=== PATIENT | female | born 1940 | race African-American/Black ===

== ENCOUNTER 2019-08-08 00:50 | Inpatient (IN) | payer MEDICARE, OTHER ==
[~2019-08-08] VITALS: Ht 165.1 cm; Wt 106.2 kg
[2019-08-08] VITALS (7 sets, daily range): BP systolic 105–153; BP diastolic 56–82
[2019-08-08 03:14] LABS: HEMATOCRIT. 44.4 % (36.0-48.0); HEMOGLOBIN. 15.3 g/dL (12.0-16.0); MEAN CORPUSCULAR HEMOGLOBIN 31.3 pg (28.0-32.0); MEAN CORPUSCULAR VOLUME 91.1 fL (81.0-99.0); MEAN PLATELET VOLUME 11.9 fl (7.4-10.4); PLATELET 386 x1000/uL (130-400); RED BLOOD CELL COUNT 4.88 mill/uL (4.2-5.4); RED CELL DISTRIBUTION WIDTH 14.7 % (11.6-14.6)
[2019-08-08] MEDS ORDERED: SODIUM CHLORIDE 0.9% 1,000 ML IV ONE (03:45)
[2019-08-08 03:57] LABS: CHLORIDE 77 mEq/L (98-107)
[2019-08-08] MEDS ORDERED: VANCOMYCIN 1 G PREMIX 200 ML IV SCH (04:15)
[2019-08-08] MEDS ORDERED: PIPERACILLIN/TAZOBACTAM 3.375GM/50ML PREMIX IV SCH (04:15)
[2019-08-08] MEDS ORDERED: POTASSIUM CHLORIDE 20MEQ TABLET SR PO SCH (04:15)
[2019-08-08] MEDS ORDERED: ONDANSETRON HCL 4MG/2ML INJ IV ONE (04:30)
[2019-08-08 05:43] LABS: ATYPICAL LYMPHOCYTES 1
[2019-08-08 05:44] LABS: PLATELET ESTIMATE NORMAL
[2019-08-08] MEDS ORDERED: DEXT 5%/0.45% NACL 1000ML 1,000 ML IV SCH (09:00)
[2019-08-08] MEDS ORDERED: ONDANSETRON HCL 4MG/2ML INJ IV PRN (09:15)
[2019-08-08] MEDS ORDERED: NA PHOS,M-B/NA PHOS,DI-BA ENEMA 118ML PR PRN (09:15)
[2019-08-08] MEDS ORDERED: MAGNESIUM/ALUMINUM HYDROXIDE/SIMETHICONE 30ML UDC PO PRN (09:15)
[2019-08-08] MEDS ORDERED: DOCUSATE SODIUM 100MG CAPSULE PO PRN (09:15)
[2019-08-08] MEDS ORDERED: ACETAMINOPHEN 650MG SUPP PR PRN (09:15)
[2019-08-08] MEDS ORDERED: CLONIDINE 0.1MG TABLET PO PRN (09:15)
[2019-08-08] MEDS ORDERED: GUAIFENESIN 200MG/10ML SUGAR FREE UDC PO PRN (09:15)
[2019-08-08] MEDS ORDERED: DEXTROSE 50% WATER 50ML SYRINGE IV PRN (09:30)
[2019-08-08] MEDS ORDERED: ENOXAPARIN 40MG/0.4ML SYR SUBCUT SCH (10:00)
[2019-08-08] MEDS: CEFTRIAXONE 1,000 MG in DEXTROSE 5% WATER 50 ML IV SCH (12:14)
[2019-08-08] MEDS: BLOOD SUGAR DIAGNOSTIC STRIP TEST SCH ×3 (12:18→21:00)
[2019-08-08] MEDS: INSULIN LISPRO 100 UNITS/ML SUBCUT SCH ×2 (12:20→17:20)
[2019-08-08] MEDS: METRONIDAZOLE 500 MG PREMIX 100 ML IV SCH (13:13)
[2019-08-08] MEDS: SODIUM CHLORIDE 0.9% INJ 3ML FLUSH IVF SCH (14:00)
[2019-08-08] MEDS: MORPHINE SULFATE 2 MG/ML CPJ (NOT FOR IM USE) IV PRN (14:27)
[2019-08-08] MEDS: PANTOPRAZOLE SODIUM 40 MG/VIAL IV SCH (14:45)
[2019-08-08 16:07] LABS: BG BASE EXCESS 15.9 mmol/L (-2.0-2.0); BG CARBOXYHEMOGLOBIN 0.8 % (0.5-1.5); BG DEOXYHEMOGLOBIN 6.2 % (0.0-5.0); BG FRACTION INSPIRED OXYGEN 28; BG HCO3 ACT 41.9 mmol/L (22.0-26.0); BG METHEMOGLOBIN 0.3 % (0.0-1.5); BG OXYGEN SATURATION 93.7 % (92.0-98.5); BG OXYHEMOGLOBIN 92.7 % (94.0-97.0); BG PCO2 55.8 mmHg (35.0-45.0); BG PH 7.493 (7.350-7.450); BG SAMPLE SITE RIGHT BRACHIAL; BG TOTAL HEMOGLOBIN 13.4 g/dL (12.0-18.0); BG VENT MODE NASAL CANNULA
[2019-08-08 17:25] LABS: CLARITY URINE TURBID (CLEAR); COLOR URINE DARK YELLOW (YELLOW); KETONES URINE TRACE (NEGATIVE); LEUKOCYTE ESTERASE URINE 2+ (NEGATIVE); NITRITE URINE NEGATIVE (NEGATIVE); OCCULT BLOOD URINE 3+ (NEGATIVE); PROTEIN URINE 2+ (NEGATIVE); SPECIFIC GRAVITY URINE 1.022 (1.005-1.030)
[2019-08-08 17:54] LABS: HEMATOCRIT. 41.4 % (36.0-48.0); MEAN CORPUSCULAR HEMOGLOBIN 30.8 pg (28.0-32.0); MEAN PLATELET VOLUME 10.5 fl (7.4-10.4); PLATELET 280 x1000/uL (130-400); RED BLOOD CELL COUNT 4.55 mill/uL (4.2-5.4); RED CELL DISTRIBUTION WIDTH 14.2 % (11.6-14.6)
[2019-08-08 17:59] LABS: CHLORIDE 80 mEq/L (98-107)
[2019-08-08 18:07] LABS: PHOSPHORUS 4.1 mg/dL (2.5-4.9)
[2019-08-08] MEDS: IPRATROPIUM/ALBUTEROL 0.5-3(2.5)MG/3ML NEB HHN SCH (20:59)
[2019-08-08 22:24] LABS: PLATELET ESTIMATE NORMAL
[2019-08-09] VITALS (12 sets, daily range): BP systolic 106–145; BP diastolic 49–66
[2019-08-09] MEDS: DEXT 5%/0.9% NACL KCL 30MEQ/L 1,000 ML IV SCH ×4 (00:30→23:43)
[2019-08-09] MEDS: METRONIDAZOLE 500 MG PREMIX 100 ML IV SCH ×4 (00:35→20:27)
[2019-08-09] MEDS: INSULIN LISPRO 100 UNITS/ML SUBCUT SCH ×5 (01:03→21:00)
[2019-08-09] MEDS: SODIUM CHLORIDE 0.9% INJ 3ML FLUSH IVF SCH ×4 (01:03→22:40)
[2019-08-09] MEDS: IPRATROPIUM/ALBUTEROL 0.5-3(2.5)MG/3ML NEB HHN SCH ×2 (01:18→20:24)
[2019-08-09] MEDS: BLOOD SUGAR DIAGNOSTIC STRIP TEST SCH ×4 (06:01→21:06)
[2019-08-09 06:43] LABS: HEMATOCRIT. 37.5 % (36.0-48.0); HEMOGLOBIN. 12.8 g/dL (12.0-16.0); MEAN CORPUSCULAR VOLUME 90.7 fL (81.0-99.0); MEAN PLATELET VOLUME 10.4 fl (7.4-10.4); PLATELET 264 x1000/uL (130-400); RED BLOOD CELL COUNT 4.14 mill/uL (4.2-5.4)
[2019-08-09 06:48] LABS: CHLORIDE 89 mEq/L (98-107)
[2019-08-09 06:56] LABS: PHOSPHORUS 2.9 mg/dL (2.5-4.9)
[2019-08-09 06:57] LABS: CREATINE KINASE 113 IU/L (26-192); LDL CHOLESTEROL 38 mg/dL (5-100)
[2019-08-09 06:59] LABS: HDL CHOLESTEROL 35 mg/dL (40-59)
[2019-08-09] MEDS: CEFTRIAXONE 1,000 MG in DEXTROSE 5% WATER 50 ML IV SCH (11:38)
[2019-08-09] MEDS: PANTOPRAZOLE SODIUM 40 MG/VIAL IV SCH (11:38)
[2019-08-09] MEDS: ENOXAPARIN 30MG/0.3ML SYR SUBCUT SCH (11:46)
[2019-08-09] MEDS ORDERED: POTASSIUM CHLORIDE INJ 40 MEQ in DEXT 5% WATER 250 ML IV SCH ×2 (12:00→21:00)
[2019-08-09 13:41] LABS: PLATELET ESTIMATE NORMAL
[2019-08-09] MEDS ORDERED: ACETAZOLAMIDE SODIUM 500MG/VIAL IV SCH (16:00)
[2019-08-09] MEDS: MORPHINE SULFATE 2 MG/ML CPJ (NOT FOR IM USE) IV PRN (17:50)
[2019-08-09] MEDS ORDERED: PHENOL/SODIUM PHENOLATE 1.4% SRPAY 177ML MT PRN (23:15)
[2019-08-10] VITALS (10 sets, daily range): BP systolic 114–131; BP diastolic 45–79
[2019-08-10] MEDS: IPRATROPIUM/ALBUTEROL 0.5-3(2.5)MG/3ML NEB HHN SCH ×4 (01:02→21:11)
[2019-08-10] MEDS: METRONIDAZOLE 500 MG PREMIX 100 ML IV SCH ×3 (04:21→20:07)
[2019-08-10] MEDS: SODIUM CHLORIDE 0.9% INJ 3ML FLUSH IVF SCH ×2 (06:37→14:00)
[2019-08-10] MEDS: BLOOD SUGAR DIAGNOSTIC STRIP TEST SCH ×4 (06:44→20:26)
[2019-08-10 07:10] LABS: *CREATININE RANDOM URINE 93.8 mg/dL (Not Estab.); MICROALBUMIN RANDOM URINE 263.5 ug/mL (Not Estab.)
[2019-08-10 07:14] LABS: HEMOGLOBIN. 13.8 g/dL (12.0-16.0); MEAN CORPUSCULAR HEMOGLOBIN 30.9 pg (28.0-32.0); MEAN CORPUSCULAR VOLUME 93.8 fL (81.0-99.0); MEAN PLATELET VOLUME 10.3 fl (7.4-10.4); PLATELET 238 x1000/uL (130-400); RED BLOOD CELL COUNT 4.47 mill/uL (4.2-5.4); RED CELL DISTRIBUTION WIDTH 14.3 % (11.6-14.6)
[2019-08-10 07:26] LABS: CHLORIDE 107 mEq/L (98-107)
[2019-08-10 07:39] LABS: PHOSPHORUS 1.5 mg/dL (2.5-4.9)
[2019-08-10] MEDS: ENOXAPARIN 30MG/0.3ML SYR SUBCUT SCH (09:01)
[2019-08-10] MEDS: PANTOPRAZOLE SODIUM 40 MG/VIAL IV SCH (09:01)
[2019-08-10] MEDS: INSULIN LISPRO 100 UNITS/ML SUBCUT SCH ×4 (09:03→20:29)
[2019-08-10] MEDS: CEFTRIAXONE 1,000 MG in DEXTROSE 5% WATER 50 ML IV SCH ×2 (09:11→16:35)
[2019-08-10] MEDS ORDERED: DIATR MEGLU/DIATRIZOATE SOLN 120ML ONE (11:08)
[2019-08-10] MEDS ORDERED: POTASSIUM PHOS,M-BASIC-D-BASIC 20 MMOL in DEXT 5% WATER 243.3333 ML IV ONE (13:00)
[2019-08-10 14:20] LABS: PLATELET ESTIMATE NORMAL
[2019-08-10] MEDS: DEXT 5%/0.9% NACL KCL 30MEQ/L 1,000 ML IV SCH ×2 (16:35→16:48)
[2019-08-11] VITALS (11 sets, daily range): BP systolic 89–185; BP diastolic 53–150
[2019-08-11] MEDS: IPRATROPIUM/ALBUTEROL 0.5-3(2.5)MG/3ML NEB HHN SCH ×4 (02:00→21:30)
[2019-08-11] MEDS: DEXT 5%/0.9% NACL KCL 30MEQ/L 1,000 ML IV SCH (02:25)
[2019-08-11] MEDS: SODIUM CHLORIDE 0.9% INJ 3ML FLUSH IVF SCH ×4 (02:29→23:06)
[2019-08-11] MEDS: METRONIDAZOLE 500 MG PREMIX 100 ML IV SCH ×2 (06:02→12:00)
[2019-08-11] MEDS: BLOOD SUGAR DIAGNOSTIC STRIP TEST SCH ×4 (06:47→21:00)
[2019-08-11] MEDS: INSULIN LISPRO 100 UNITS/ML SUBCUT SCH ×4 (06:49→21:00)
[2019-08-11] MEDS: ENOXAPARIN 30MG/0.3ML SYR SUBCUT SCH (09:00)
[2019-08-11 09:10] LABS: MEAN CORPUSCULAR HEMOGLOBIN 31.3 pg (28.0-32.0); MEAN CORPUSCULAR VOLUME 93.5 fL (81.0-99.0); MEAN PLATELET VOLUME 10.2 fl (7.4-10.4); PLATELET 271 x1000/uL (130-400); RED BLOOD CELL COUNT 4.49 mill/uL (4.2-5.4); RED CELL DISTRIBUTION WIDTH 14.6 % (11.6-14.6)
[2019-08-11 09:16] LABS: CHLORIDE 114 mEq/L (98-107)
[2019-08-11 09:22] LABS: PHOSPHORUS 1.3 mg/dL (2.5-4.9)
[2019-08-11] MEDS: PANTOPRAZOLE SODIUM 40 MG/VIAL IV SCH (09:25)
[2019-08-11] MEDS: MORPHINE SULFATE 2 MG/ML CPJ (NOT FOR IM USE) IV PRN ×2 (11:30→23:41)
[2019-08-11 12:58] LABS: PLATELET ESTIMATE NORMAL
[2019-08-11] MEDS ORDERED: DILTIAZEM HCL 125 MG in DEXT 5% WATER 100 ML IV SCH (13:00)
[2019-08-11] MEDS ORDERED: POTASSIUM PHOS,M-BASIC-D-BASIC 20 MMOL in DEXT 5% WATER 243.3333 ML IV NR (14:00)
[2019-08-11] MEDS ORDERED: MIDAZOLAM HCL 2 MG/2 ML VIAL ONE (14:06)
[2019-08-11] MEDS ORDERED: PROPOFOL 200MG/20ML VIAL IV ONE (14:06)
[2019-08-11] MEDS ORDERED: NEOSTIGMINE METHYLSULFATE 1MG/ML 10 ML VIAL ONE ×2 (14:06→15:37)
[2019-08-11] MEDS ORDERED: FENTANYL CITRATE/PF 50MCG/ML 2ML VIAL ONE (14:06)
[2019-08-11] MEDS ORDERED: GLYCOPYRROLATE 0.2 MG/ML 2ML VIAL ONE ×2 (14:07→15:37)
[2019-08-11] MEDS ORDERED: ONDANSETRON HCL 4MG/2ML INJ ONE (14:07)
[2019-08-11] MEDS ORDERED: DEXAMETHASONE 4MG/ML 1ML VIAL ONE (14:07)
[2019-08-11] MEDS ORDERED: METRONIDAZOLE 500 MG PREMIX 100 ML IV ONE (14:15)
[2019-08-11 14:18] LABS: BG BASE EXCESS 9.3 mmol/L (-2.0-2.0); BG CARBOXYHEMOGLOBIN 0.6 % (0.5-1.5); BG FRACTION INSPIRED OXYGEN 32; BG HCO3 ACT 33.3 mmol/L (22.0-26.0); BG METHEMOGLOBIN 0.1 % (0.0-1.5); BG OXYHEMOGLOBIN 93.3 % (94.0-97.0); BG PCO2 42.8 mmHg (35.0-45.0); BG PH 7.509 (7.350-7.450); BG PO2 68.6 mmHg (75.0-100.0); BG SAMPLE SITE RIGHT BRACHIAL; BG TOTAL HEMOGLOBIN 13.7 g/dL (12.0-18.0); BG VENT MODE NASAL CANNULA
[2019-08-11] MEDS ORDERED: MORPHINE SULFATE 4 MG/ML CPJ (NOT FOR IM USE) IV PRN (14:45)
[2019-08-11] MEDS ORDERED: METRONIDAZOLE 500 MG PREMIX 100 ML IV SCH (14:45)
[2019-08-11] MEDS ORDERED: ROCURONIUM BROMIDE 10MG/ML VIAL 5ML IV ONE (15:06)
[2019-08-11] MEDS ORDERED: EPHEDRINE SULFATE 50MG/ML VIAL ONE (15:11)
[2019-08-11] MEDS ORDERED: SODIUM CHLORIDE 0.9% 10ML VIAL ONE (15:11)
[2019-08-11] MEDS ORDERED: DEXT 5%/0.45% NACL KCL 20MEQ/L 1,000 ML IV SCH (16:00)
[2019-08-11] MEDS: HYDROMORPHONE HCL/PF 2MG/ML CPJ IV PRN ×3 (16:54→17:09)
[2019-08-11 20:06] LABS: HEMATOCRIT. 49.9 % (36.0-48.0); HEMOGLOBIN. 16.1 g/dL (12.0-16.0); MEAN CORPUSCULAR HEMOGLOBIN 30.8 pg (28.0-32.0); MEAN CORPUSCULAR VOLUME 95.6 fL (81.0-99.0); MEAN PLATELET VOLUME 10.1 fl (7.4-10.4); PLATELET 278 x1000/uL (130-400); RED BLOOD CELL COUNT 5.22 mill/uL (4.2-5.4); RED CELL DISTRIBUTION WIDTH 14.9 % (11.6-14.6)
[2019-08-11 20:14] LABS: INR 2.1; PROTHROMBIN TIME 22.8 sec (9.6-11.0)
[2019-08-11 20:32] LABS: PLATELET ESTIMATE NORMAL
[2019-08-11] MEDS: [UNRECOGNIZED DRUG - OTHER] IV SCH ×2 (20:48→23:42)
[2019-08-11] MEDS: POTASSIUM PHOS M BASIC D BASIC IV SCH ×2 (20:48→23:42)
[2019-08-11] MEDS: POTASSIUM CHLORIDE IV SCH ×2 (20:48→23:42)
[2019-08-11] MEDS: CEFAZOLIN 1000MG PREMIX 50 ML IV SCH (22:54)
[2019-08-11] MEDS: FAMOTIDINE 20MG/2ML VIAL IV SCH (23:06)
[2019-08-12] VITALS (14 sets, daily range): BP systolic 100–148; BP diastolic 60–90
[2019-08-12] MEDS: METRONIDAZOLE 500 MG PREMIX 100 ML IV SCH ×4 (00:16→21:20)
[2019-08-12] MEDS: CEFAZOLIN 1000MG PREMIX 50 ML IV SCH ×2 (01:00→09:16)
[2019-08-12] MEDS: IPRATROPIUM/ALBUTEROL 0.5-3(2.5)MG/3ML NEB HHN SCH ×4 (02:20→20:41)
[2019-08-12] MEDS: [UNRECOGNIZED DRUG - OTHER] IV SCH (03:54)
[2019-08-12] MEDS: POTASSIUM CHLORIDE IV SCH (03:54)
[2019-08-12] MEDS: POTASSIUM PHOS M BASIC D BASIC IV SCH (03:54)
[2019-08-12] MEDS: SODIUM CHLORIDE 0.9% INJ 3ML FLUSH IVF SCH ×3 (06:00→21:41)
[2019-08-12] MEDS: BLOOD SUGAR DIAGNOSTIC STRIP TEST SCH ×3 (06:00→21:15)
[2019-08-12] MEDS: INSULIN LISPRO 100 UNITS/ML SUBCUT SCH ×3 (06:18→21:00)
[2019-08-12 07:27] LABS: HEMATOCRIT. 42.7 % (36.0-48.0); HEMOGLOBIN. 14.1 g/dL (12.0-16.0); MEAN CORPUSCULAR HEMOGLOBIN 31.5 pg (28.0-32.0); MEAN CORPUSCULAR VOLUME 95.4 fL (81.0-99.0); MEAN PLATELET VOLUME 9.7 fl (7.4-10.4); PLATELET 249 x1000/uL (130-400); RED BLOOD CELL COUNT 4.48 mill/uL (4.2-5.4)
[2019-08-12] MEDS: ENOXAPARIN 30MG/0.3ML SYR SUBCUT SCH ×2 (09:36→10:13)
[2019-08-12] MEDS: DEXTROSE 5% WATER 1,000 ML IV SCH ×2 (10:12→22:29)
[2019-08-12] MEDS: MORPHINE SULFATE 2 MG/ML CPJ (NOT FOR IM USE) IV PRN (10:14)
[2019-08-12] MEDS: CEFTRIAXONE 1,000 MG in DEXTROSE 5% WATER 50 ML IV SCH (10:31)
[2019-08-12] MEDS ORDERED: DILTIAZEM HCL 125 MG in DEXT 5% WATER 100 ML IV SCH ×2 (12:00→17:30)
[2019-08-12] MEDS ORDERED: DILTIAZEM HCL 5MG/ML 5ML VIAL IV NR (17:08)
[2019-08-12 18:08] LABS: NUCLEATED RED BLOOD CELLS 1 /100 WBC; PLATELET ESTIMATE NORMAL
[2019-08-12] MEDS: FAMOTIDINE 20MG/2ML VIAL IV SCH (21:21)
[2019-08-13] VITALS (12 sets, daily range): BP systolic 85–156; BP diastolic 53–89
[2019-08-13] MEDS: IPRATROPIUM/ALBUTEROL 0.5-3(2.5)MG/3ML NEB HHN SCH ×4 (02:29→20:35)
[2019-08-13] MEDS: METRONIDAZOLE 500 MG PREMIX 100 ML IV SCH ×3 (03:55→21:51)
[2019-08-13] MEDS: DEXTROSE 5% WATER 1,000 ML IV SCH ×4 (04:02→21:53)
[2019-08-13] MEDS: BLOOD SUGAR DIAGNOSTIC STRIP TEST SCH ×4 (06:17→21:59)
[2019-08-13] MEDS: SODIUM CHLORIDE 0.9% INJ 3ML FLUSH IVF SCH ×3 (06:17→21:51)
[2019-08-13 06:19] LABS: PHOSPHORUS 3.6 mg/dL (2.5-4.9)
[2019-08-13] MEDS: INSULIN LISPRO 100 UNITS/ML SUBCUT SCH ×4 (06:28→21:00)
[2019-08-13 06:33] LABS: BASOPHILS % 0.3 % (0.0-2.0); EOSINOPHILS % 0.6 % (0.0-5.0); HEMATOCRIT. 41.3 % (36.0-48.0); HEMOGLOBIN. 13.6 g/dL (12.0-16.0); LYMPHOCYTES % 9.6 % (20.0-50.0); MEAN CORPUSCULAR HEMOGLOBIN 31.2 pg (28.0-32.0); MEAN PLATELET VOLUME 10.1 fl (7.4-10.4); MONOCYTES % 6.1 % (2.0-8.0); NEUTROPHILS % 83.4 % (40.0-76.0); PLATELET 189 x1000/uL (130-400); RED BLOOD CELL COUNT 4.35 mill/uL (4.2-5.4); RED CELL DISTRIBUTION WIDTH 15.1 % (11.6-14.6)
[2019-08-13] MEDS ORDERED: DILTIAZEM HCL 125 MG in DEXT 5% WATER 100 ML IV SCH (09:00)
[2019-08-13] MEDS: CEFTRIAXONE 1 G PREMIX 50 ML IV SCH (19:49)
[2019-08-13] MEDS: MORPHINE SULFATE 2 MG/ML CPJ (NOT FOR IM USE) IV PRN (19:57)
[2019-08-13] MEDS: FAMOTIDINE 20MG/2ML VIAL IV SCH (22:32)
[2019-08-14] VITALS (12 sets, daily range): BP systolic 105–173; BP diastolic 50–88
[2019-08-14] MEDS: IPRATROPIUM/ALBUTEROL 0.5-3(2.5)MG/3ML NEB HHN SCH ×4 (02:40→22:00)
[2019-08-14] MEDS ORDERED: DILTIAZEM HCL 125 MG in DEXT 5% WATER 100 ML IV SCH (04:07)
[2019-08-14] MEDS ORDERED: DILTIAZEM HCL 5MG/ML 5ML VIAL IV NR (04:15)
[2019-08-14] MEDS: DEXTROSE 5% WATER 1,000 ML IV SCH ×2 (04:49→10:13)
[2019-08-14] MEDS: BLOOD SUGAR DIAGNOSTIC STRIP TEST SCH ×4 (06:07→20:56)
[2019-08-14] MEDS: SODIUM CHLORIDE 0.9% INJ 3ML FLUSH IVF SCH ×3 (06:07→22:25)
[2019-08-14 06:33] LABS: BASOPHILS % 0.2 % (0.0-2.0); EOSINOPHILS % 0.4 % (0.0-5.0); HEMATOCRIT. 39.3 % (36.0-48.0); HEMOGLOBIN. 13.1 g/dL (12.0-16.0); MEAN CORPUSCULAR HEMOGLOBIN 31.2 pg (28.0-32.0); MEAN CORPUSCULAR VOLUME 93.7 fL (81.0-99.0); MEAN PLATELET VOLUME 9.9 fl (7.4-10.4); MONOCYTES % 3.7 % (2.0-8.0); NEUTROPHILS % 85.7 % (40.0-76.0); PLATELET 155 x1000/uL (130-400); RED CELL DISTRIBUTION WIDTH 14.3 % (11.6-14.6)
[2019-08-14 06:40] LABS: CHLORIDE 110 mEq/L (98-107)
[2019-08-14 06:56] LABS: PHOSPHORUS 3.3 mg/dL (2.5-4.9)
[2019-08-14] MEDS: ENOXAPARIN 30MG/0.3ML SYR SUBCUT SCH (08:16)
[2019-08-14] MEDS: INSULIN LISPRO 100 UNITS/ML SUBCUT SCH ×4 (08:16→21:00)
[2019-08-14] MEDS ORDERED: MAGNESIUM 2 G PREMIX 50 ML IV SCH (12:00)
[2019-08-14] MEDS ORDERED: CLONIDINE HCL 0.2MG/24HR PATCH TD SCH (12:00)
[2019-08-14] MEDS: POTASSIUM CHLORIDE INJ 10 MEQ in DEXTROSE 5% WATER 1,000 ML IV SCH ×2 (12:24→20:56)
[2019-08-14] MEDS: DILTIAZEM HCL 125 MG in DEXT 5% WATER 100 ML IV SCH ×2 (15:30→22:24)
[2019-08-14] MEDS: CEFTRIAXONE 1 G PREMIX 50 ML IV SCH (17:21)
[2019-08-14] MEDS: FAMOTIDINE 20MG/2ML VIAL IV SCH (20:56)
[2019-08-15] VITALS (11 sets, daily range): BP systolic 108–147; BP diastolic 66–75
[2019-08-15] MEDS: IPRATROPIUM/ALBUTEROL 0.5-3(2.5)MG/3ML NEB HHN SCH ×4 (02:55→22:00)
[2019-08-15] MEDS: POTASSIUM CHLORIDE INJ 10 MEQ in DEXTROSE 5% WATER 1,000 ML IV SCH ×2 (04:46→09:16)
[2019-08-15] MEDS: SODIUM CHLORIDE 0.9% INJ 3ML FLUSH IVF SCH ×3 (05:31→22:00)
[2019-08-15] MEDS: BLOOD SUGAR DIAGNOSTIC STRIP TEST SCH ×4 (06:10→21:24)
[2019-08-15 06:42] LABS: BASOPHILS % 0.2 % (0.0-2.0); EOSINOPHILS % 0.4 % (0.0-5.0); HEMATOCRIT. 36.7 % (36.0-48.0); HEMOGLOBIN. 12.2 g/dL (12.0-16.0); LYMPHOCYTES % 8.3 % (20.0-50.0); MEAN CORPUSCULAR VOLUME 93.3 fL (81.0-99.0); MONOCYTES % 4.9 % (2.0-8.0); NEUTROPHILS % 86.2 % (40.0-76.0); PLATELET 140 x1000/uL (130-400); RED BLOOD CELL COUNT 3.93 mill/uL (4.2-5.4); RED CELL DISTRIBUTION WIDTH 14.3 % (11.6-14.6)
[2019-08-15 06:59] LABS: CHLORIDE 108 mEq/L (98-107)
[2019-08-15 07:09] LABS: PHOSPHORUS 2.8 mg/dL (2.5-4.9)
[2019-08-15] MEDS: INSULIN LISPRO 100 UNITS/ML SUBCUT SCH ×4 (07:20→21:00)
[2019-08-15] MEDS: DILTIAZEM HCL 125 MG in DEXT 5% WATER 100 ML IV SCH (07:25)
[2019-08-15] MEDS: ENOXAPARIN 30MG/0.3ML SYR SUBCUT SCH (08:51)
[2019-08-15] MEDS: DEXT 5% WATER + KCL 20MEQ/L 1,000 ML IV SCH ×2 (12:30→20:44)
[2019-08-15] MEDS: CEFTRIAXONE 1 G PREMIX 50 ML IV SCH (17:29)
[2019-08-15] MEDS: FAMOTIDINE 20MG/2ML VIAL IV SCH (20:44)
[2019-08-16] VITALS (12 sets, daily range): BP systolic 124–153; BP diastolic 62–73
[2019-08-16] MEDS: IPRATROPIUM/ALBUTEROL 0.5-3(2.5)MG/3ML NEB HHN SCH ×4 (00:53→20:18)
[2019-08-16] MEDS: DILTIAZEM HCL 125 MG in DEXT 5% WATER 100 ML IV SCH (03:27)
[2019-08-16] MEDS: DEXT 5% WATER + KCL 20MEQ/L 1,000 ML IV SCH ×3 (05:10→17:33)
[2019-08-16] MEDS: SODIUM CHLORIDE 0.9% INJ 3ML FLUSH IVF SCH ×3 (05:19→22:33)
[2019-08-16] MEDS: BLOOD SUGAR DIAGNOSTIC STRIP TEST SCH ×4 (06:43→21:00)
[2019-08-16] MEDS: INSULIN LISPRO 100 UNITS/ML SUBCUT SCH ×4 (07:20→22:20)
[2019-08-16] MEDS: ENOXAPARIN 30MG/0.3ML SYR SUBCUT SCH (09:22)
[2019-08-16 09:34] LABS: BASOPHILS % 0.2 % (0.0-2.0); EOSINOPHILS % 0.7 % (0.0-5.0); HEMATOCRIT. 36.9 % (36.0-48.0); HEMOGLOBIN. 12.4 g/dL (12.0-16.0); LYMPHOCYTES % 13.4 % (20.0-50.0); MEAN CORPUSCULAR HEMOGLOBIN 31.3 pg (28.0-32.0); MEAN CORPUSCULAR VOLUME 93.1 fL (81.0-99.0); MEAN PLATELET VOLUME 9.7 fl (7.4-10.4); MONOCYTES % 5.3 % (2.0-8.0); NEUTROPHILS % 80.4 % (40.0-76.0); PLATELET 148 x1000/uL (130-400); RED BLOOD CELL COUNT 3.96 mill/uL (4.2-5.4); RED CELL DISTRIBUTION WIDTH 14.3 % (11.6-14.6)
[2019-08-16 10:05] LABS: CHLORIDE 103 mEq/L (98-107)
[2019-08-16 10:10] LABS: PHOSPHORUS 2.5 mg/dL (2.5-4.9)
[2019-08-16] MEDS: ONDANSETRON HCL 4MG/2ML INJ IV PRN (15:26)
[2019-08-16] MEDS: CEFTRIAXONE 1 G PREMIX 50 ML IV SCH (17:33)
[2019-08-16] MEDS: FAMOTIDINE 20MG/2ML VIAL IV SCH (22:17)
[2019-08-17] VITALS (13 sets, daily range): BP systolic 121–166; BP diastolic 69–88
[2019-08-17] MEDS: DEXT 5% WATER + KCL 20MEQ/L 1,000 ML IV SCH ×2 (02:15→06:10)
[2019-08-17] MEDS: BLOOD SUGAR DIAGNOSTIC STRIP TEST SCH ×4 (06:30→21:42)
[2019-08-17] MEDS: SODIUM CHLORIDE 0.9% INJ 3ML FLUSH IVF SCH ×3 (06:34→21:49)
[2019-08-17 06:50] LABS: BASOPHILS % 0.2 % (0.0-2.0); EOSINOPHILS % 0.7 % (0.0-5.0); HEMATOCRIT. 38.1 % (36.0-48.0); HEMOGLOBIN. 12.8 g/dL (12.0-16.0); LYMPHOCYTES % 12.8 % (20.0-50.0); MEAN CORPUSCULAR HEMOGLOBIN 31.4 pg (28.0-32.0); MEAN CORPUSCULAR VOLUME 93.4 fL (81.0-99.0); MONOCYTES % 4.4 % (2.0-8.0); NEUTROPHILS % 81.9 % (40.0-76.0); PLATELET 153 x1000/uL (130-400); RED BLOOD CELL COUNT 4.08 mill/uL (4.2-5.4)
[2019-08-17 07:01] LABS: CHLORIDE 102 mEq/L (98-107)
[2019-08-17 07:17] LABS: PHOSPHORUS 2.5 mg/dL (2.5-4.9)
[2019-08-17] MEDS: INSULIN LISPRO 100 UNITS/ML SUBCUT SCH ×4 (08:13→21:55)
[2019-08-17] MEDS: IPRATROPIUM/ALBUTEROL 0.5-3(2.5)MG/3ML NEB HHN SCH ×2 (08:35→20:50)
[2019-08-17] MEDS ORDERED: DILTIAZEM HCL 30MG TABLET PO SCH (09:30)
[2019-08-17] MEDS: ENOXAPARIN 30MG/0.3ML SYR SUBCUT SCH (11:43)
[2019-08-17] MEDS: DILTIAZEM HCL 30MG TABLET PO SCH ×2 (11:52→23:58)
[2019-08-17] MEDS ORDERED: DEXT 5% WATER + KCL 20MEQ/L 1,000 ML IV SCH (13:00)
[2019-08-17] MEDS: ONDANSETRON HCL 4MG/2ML INJ IV PRN (15:51)
[2019-08-17] MEDS: CEFTRIAXONE 1 G PREMIX 50 ML IV SCH (18:55)
[2019-08-17] MEDS: FAMOTIDINE 20MG/2ML VIAL IV SCH (21:49)
== END 2019-08-18 00:35 | disposition short-term general hospital (02) | DRG 853 ==
LOC: ER 00:50 → 3WST 04:17 → EDBEDREQSVC 04:23 → EDBEDREQ 04:23 → EDBEDREQTM 04:23 → ENRESERV 07:38 → 3WST 09:10
PROVIDERS: ADMIT Family Medicine; ATTEND Family Medicine
PROC: 0D9670Z Drainage of Stomach with Drainage Device, Via Natural or Artificial Opening (ICD-10-PCS; 2019-08-08)
PROC: 0DNV0ZZ Release Mesentery, Open Approach (ICD-10-PCS; principal; 2019-08-11)
PROC: 05HY33Z Insertion of Infusion Device into Upper Vein, Percutaneous Approach (ICD-10-PCS; 2019-08-12)
PROC: B54MZZA Ultrasonography of Right Upper Extremity Veins, Guidance (ICD-10-PCS; 2019-08-12)
DX: A41.9 Sepsis, unspecified organism (principal); N17.0 Acute kidney failure with tubular necrosis; J96.02 Acute respiratory failure with hypercapnia; J96.01 Acute respiratory failure with hypoxia; E44.0 Moderate protein-calorie malnutrition; E87.3 Alkalosis; E87.0 Hyperosmolality and hypernatremia; I47.1 Supraventricular tachycardia; I48.92 Unspecified atrial flutter; K56.50 Intestinal adhesions [bands], unspecified as to partial versus complete obstruction; J91.8 Pleural effusion in other conditions classified elsewhere; K56.7 Ileus, unspecified; E78.5 Hyperlipidemia, unspecified; K80.20 Calculus of gallbladder without cholecystitis without obstruction; D64.9 Anemia, unspecified; I48.91 Unspecified atrial fibrillation; E11.22 Type 2 diabetes mellitus with diabetic chronic kidney disease; E83.39 Other disorders of phosphorus metabolism; N18.9 Chronic kidney disease, unspecified; I13.10 Hypertensive heart and chronic kidney disease without heart failure, with stage 1 through stage 4 chronic kidney disease, or unspecified chronic kidney disease; E66.01 Morbid (severe) obesity due to excess calories; Z20.828 Contact with and (suspected) exposure to other viral communicable diseases; E87.5 Hyperkalemia; M10.9 Gout, unspecified; E11.65 Type 2 diabetes mellitus with hyperglycemia; E86.0 Dehydration; E83.42 Hypomagnesemia; Z85.3 Personal history of malignant neoplasm of breast; Z68.28 Body mass index [BMI] 28.0-28.9, adult; Z79.899 Other long term (current) drug therapy
CPT/HCPCS: 36415; 36600; 71045; 74018; 74176; 74250; 76857; 76937; 78227; 80048; 80053; 80061; 81003; 82043; 82375; 82550; 82570; 82805; 82962; 83036; 83605; 83735; 83880; 83935; 84100; 84132; 84145; 84300; 84443; 84484; 85025; 87635; 93005; 93306; 94003; 94640; 97162; 97530; 99285; A9537; C1725; C9113; J0690; J0696; J1100; J1120; J1170; J1650; J1815; J2250; J2270; J2405; J2543; J2704; J2710; J3010; J3370; J3475; J3480; J3490; J7060; J7070; Q9963